=== PATIENT | female | born 1990 | race Caucasian/White ===

== ENCOUNTER 2021-12-26 11:49 | Emergency (ER) | payer OTHER ==
[~2021-12-26] VITALS: Ht 165.1 cm; Wt 56.7 kg
[2021-12-26 11:55] VITALS: BP 110/68
--- NOTE | 2021-12-26 12:22 | NUR ---
Patient discharged to home in stable condition. Written and verbal after care instructions given. Patient verbalizes understanding of instruction.
== END 2021-12-26 12:22 | disposition home or self-care (01) ==
LOC: ER 11:59
DX: K12.0 Recurrent oral aphthae (principal); R51.9 Headache, unspecified; R05.9 Cough, unspecified; J02.9 Acute pharyngitis, unspecified; Z20.822 Contact with and (suspected) exposure to COVID-19
CPT/HCPCS: 87070; 87426; 87880; 99283; C9803; 86403-TC

== ENCOUNTER 2023-11-18 10:50 | Emergency (ER) | payer MEDICAID, OTHER ==
[~2023-11-18] VITALS: Ht 165.1 cm; Wt 61.7 kg
[2023-11-18] MEDS ORDERED: diphenhydrAMINE HCL 50 MG/ML VIAL ONE (11:51)
[2023-11-18] MEDS ORDERED: KETOROLAC TROMETHAMINE INJ 30 MG/ML VIAL ONE (11:51)
[2023-11-18] MEDS ORDERED: METOCLOPRAMIDE HCL 10 MG/2 ML VIAL ONE (11:51)
[2023-11-18] MEDS: IV NS 0.9% 1,000 ML BAG IV ONE (12:09)
[2023-11-18] MEDS: diphenhydrAMINE HCL 50 MG/ML VIAL IV ONE (12:10)
[2023-11-18] MEDS: KETOROLAC TROMETHAMINE INJ 30 MG/ML VIAL IV ONE (12:13)
[2023-11-18] MEDS: METOCLOPRAMIDE HCL 10 MG/2 ML VIAL IV ONE (12:16)
[2023-11-18] MEDS ORDERED: METO-295 PO (13:23)
[2023-11-18 13:35] VITALS: BP 103/66; TEMP 98.1; O2SAT 100
== END 2023-11-18 13:39 | disposition home or self-care (01) ==
LOC: ER 11:00
DX: G43.909 Migraine, unspecified, not intractable, without status migrainosus (principal)
CPT/HCPCS: 99285; 96374; 96375; 96361; J1200; J2765; J1885; J7030